=== PATIENT | female | born 1955 | race Caucasian/White ===

== ENCOUNTER 2017-03-04 09:39 | Day surgery (SDC) | payer OTHER ==
[~2017-03-04] VITALS: Ht 172.7 cm; Wt 86.9 kg
[2017-03-04 10:06] VITALS: BP 123/82
[2017-03-04] MEDS ORDERED: LACTATED RINGERS 1,000 ML IV SCH (10:06)
[2017-03-04] MEDS ORDERED: BECL8.7A7 INH (10:23)
[2017-03-04] MEDS ORDERED: AZEL137S4 NAS (10:23)
[2017-03-04] MEDS ORDERED: FLUT9.9S NAS (10:23)
[2017-03-04] MEDS ORDERED: LIDOCAINE 1%, 2ML SQ PRN (10:30)
[2017-03-04] MEDS ORDERED: PLEASE ENTER ALLERGIES MC SCH ×2 (10:30)
[2017-03-04] MEDS ORDERED: PLEASE ENTER HEIGHT AND WEIGHT MC SCH (10:30)
[2017-03-04] MEDS ORDERED: BUPIVACAINE/PF 0.5% ONE (11:39)
[2017-03-04] MEDS ORDERED: EPINEPHRINE 1 MG/ML, 1ML ONE (11:39)
[2017-03-04] MEDS ORDERED: PROPOFOL 10 MG/ML, 20ML ONE (11:41)
[2017-03-04] MEDS ORDERED: DEXAMETHASONE 4 MG/ML, 1ML ONE (11:41)
[2017-03-04] MEDS ORDERED: CEFAZOLIN 1,000 MG ONE (11:41)
[2017-03-04] MEDS ORDERED: FENTANYL PF 250 MCG/5ML ONE (11:41)
[2017-03-04] MEDS ORDERED: MIDAZOLAM 1 MG/ML, 2ML ONE (11:41)
[2017-03-04] MEDS ORDERED: ONDANSETRON 2MG/ML, 2ML ONE (11:42)
[2017-03-04] MEDS ORDERED: NEOSPORIN OINT, 15GM ONE (11:44)
[2017-03-04] MEDS ORDERED: LIDOCAINE GEL 2%, 5ML ONE (11:55)
[2017-03-04] MEDS ORDERED: ROCURONIUM 10 MG/ML ONE (12:00)
[2017-03-04] MEDS ORDERED: SUCCINYLCHOLINE 20 MG/ML, 10ML ONE (12:00)
[2017-03-04] MEDS ORDERED: HYDROmorphone 1 MG/ML, 1ML ONE ×2 (12:52→13:45)
[2017-03-04] MEDS ORDERED: LABETALOL 5MG/ML, 20ML IV PRN (13:00)
[2017-03-04] MEDS ORDERED: ONDANSETRON 2MG/ML, 2ML IVPush PRN (13:00)
[2017-03-04] MEDS ORDERED: FENTANYL PF 100 MCG/2ML IV PRN (13:00)
[2017-03-04] MEDS ORDERED: EPHEDRINE 50 MG/ML, 1ML IVPush PRN (13:00)
[2017-03-04] MEDS ORDERED: HYDROmorphone 1 MG/ML, 1ML IV PRN (13:00)
[2017-03-04] MEDS ORDERED: MIDAZOLAM 1 MG/ML, 2ML IV PRN (13:00)
[2017-03-04] MEDS ORDERED: PROMETHAZINE 25 MG/ML, 1ML IV PRN (13:00)
[2017-03-04] MEDS ORDERED: OXYcodone 5 MG/5 ML ORAL.SOL UDC PO PRN (13:00)
[2017-03-04] MEDS ORDERED: ACETAMINOPHEN 325 MG TABLET PO PRN (13:00)
[2017-03-04] MEDS ORDERED: OXYcodone 5 MG/5 ML ORAL.SOL UDC ONE (13:26)
[2017-03-04] MEDS ORDERED: FENTANYL PF 100 MCG/2ML ONE (13:26)
[2017-03-04] MEDS ORDERED: ACETAMINOPHEN 650 MG/20.3 ML UDC ONE (13:26)
== END 2017-03-04 17:10 ==
LOC: OUT 09:39
PROVIDERS: ATTEND Orthopaedic Surgery
DX: S42.002A Fracture of unspecified part of left clavicle, initial encounter for closed fracture (principal); X58.XXXA Exposure to other specified factors, initial encounter; Y93.89 Activity, other specified; Y92.89 Other specified places as the place of occurrence of the external cause; Y99.8 Other external cause status
CPT/HCPCS: 23515; 73000; 76000; 93005; C1713; J0171; J0330; J0690; J1100; J1170; J2250; J2405; J2704; J3010; J3490; J7120